=== PATIENT | female | born 1945 | race Caucasian/White ===

== ENCOUNTER → 2021-02-28 | Day surgery (SDC) | payer MEDICARE, OTHER ==
[~2021-02-28] VITALS: Ht 165.1 cm; Wt 72.1 kg
[~2021-02-28] MED LIST: AMLODIPINE BES2.5 MG PO; ASPIRIN EC81 MG PO; AUGMENTIN 875-1 EACH PO; BYSTOLIC2.5 MG PO; DAILY VALUE1 EACH PO; HARD NAILS2500 MCG PO; HYDROCODON-ACE1 EAC4 PO; NASACORT16.9 ML; VITAMIN B-121000 MC3 PO; VITAMIN D325 MCG PO; VITAMIN E400 UNI1 PO; ZYRTEC10 MG PO
--- NOTE | 2021-02-28 17:47 | NUR ---
INSTRUCTED ON NEW MEDS AND SIGNS AND SYMPTOMS OF INFECTION. VERBALIZED UNDERSTANDING. DEBBI VÁSQUEZ R.N.
== END | disposition home or self-care (01) ==
LOC: ER1 10:59 → CDU 11:40 → MED SURG 4 11:40 → ER1 11:40 → OR 11:41 → MED SURG 4 13:14 → CDU 13:38 → MED SURG 4 13:38
DX: S62.637A Displaced fracture of distal phalanx of left little finger, initial encounter for closed fracture (principal); S61.317A Laceration without foreign body of left little finger with damage to nail, initial encounter; I10 Essential (primary) hypertension; Z88.1 Allergy status to other antibiotic agents; Z79.2 Long term (current) use of antibiotics; Z79.82 Long term (current) use of aspirin; Z79.899 Other long term (current) drug therapy; Z20.822 Contact with and (suspected) exposure to COVID-19; X58.XXXA Exposure to other specified factors, initial encounter
CPT/HCPCS: 96374; 96375; 73140; 76000; 90471; 90715; 96376; 99284; C1713; G0378; J1100; J2001; J2270; J2405; J2704; J7120; U0002

== ENCOUNTER → 2021-03-11 | Outpatient (CLI) | payer MEDICARE, OTHER | LOC: WCC 08:27 | DX: S61.307A Unspecified open wound of left little finger with damage to nail, initial encounter (principal); I10 Essential (primary) hypertension; I73.9 Peripheral vascular disease, unspecified | CPT/HCPCS: G0463 ==